=== PATIENT | male | born 1940 | race Caucasian/White ===

== ENCOUNTER → 2016-12-25 | Day surgery (SDC) | payer OTHER ==
[~2016-12-25] MED LIST: ACETAMINOPHEN 1000 MG/100 ML 100 ML IV ONE; ALLO300; ALPR0.5T99 PO; ASPI81TA82 PO; BALANCED SALT SOLN OPHT IRRIG 15 ML BTL ONE; BUPIVACAINE/EPINEPHRINE 0.25% 50 ML VIAL ONE; DIOV320T PO; GLUCTAB; LACTATED RINGER'S 1000 ML INJ 1,000 ML IV ONE; LACTATED RINGER'S 1000 ML INJ 1,000 ML ONE; LIDOCAINE 0.5%/EPINEPHrine 1:200,000 SOLN 50 ML VIAL ONE; METO50TA; MIDAZOLAM HCL 2 MG/2 ML VIAL ONE; NAPR-576 PO; NEOMYCIN/POLYMYXIN/BACITRACIN OINT 15 GM TUBE ONE; ONDANSETRON HCL 4 MG/2 ML VIAL IV PUSH ONE; PROPOFOL 200 MG/20 ML AMP IV ONE; SIMV40 PO; SYNT137T PO; TRAM50TA PO; ceFAZolin INJ 1,000 MG VIAL ONE
--- NOTE | 2016-12-25 11:42 | TN ---
cc: CODY JORDAN M.D. 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 PROCEDURE Wide local excision resultant primary defect of the lateral forehead of 2 x 2. This required tissue rearrangement reconstruction for a second defect of 5 x 3 cm. The right helical rim on the top of the ear, the defect was 1.2 x 1 cm. The secondary defect was 4.5 x 2. This required tissue rearrangement reconstruction (Antia-Bajwa). SURGEON Cody Jordan MD ANESTHESIA LMA. Utilized total of 10 ccs of 1% lidocaine with epinephrine. ESTIMATED BLOOD LOSS Minimal. COMPLICATIONS None. PROCEDURE He was properly consented, marked, anesthetized. The skin was sterilized with Microcyn and sterile draping applied. Local anesthetic was infiltrated. Excision was carried out of the forehead lesion resulting defect of 2 x 2 cm defect. A V-Y tissue rearrangement reconstruction was advanced lateral to medial and anchored inset utilizing 4-0 Monocryl suture of 5-0 fast-absorbing gut. Secondary defect was 5 x 3 for a total of 19 sq cm. The lesion on the helical rim was excised and sent to pathology for frozen section due to the complexity and the location. Frozen section was negative. Primary defect is 1 x 1.2 cm margins. An Antia-Bajwa type of flap was elevated and rotated into the defect for a second defect of 4.5 x 2 cm.The reconstruction totaled 10.20 sq cm. Good viability of tissue was noted at the end of the case. It was anchored with the same suture material as previously mentioned. Overall, the patient tolerated the procedure well. He was awakened, extubated in the operating room and transferred back to postanesthesia care unit in stable condition. No complications were appreciated. The patient tolerated the procedure fairly well. MD SUMAN Orlando/FACUNDO /11:02 AM /11:23 AM DAMION
== END | disposition home or self-care (01) ==
LOC: ESDC 08:11
PROVIDERS: ATTEND Plastic Surgery
DX: C44.329 Squamous cell carcinoma of skin of other parts of face (principal); C44.222 Squamous cell carcinoma of skin of right ear and external auricular canal
CPT/HCPCS: 00300; 14041; 14061; 88305; 88331; J0131; J0690; J2250; J2405; J3010; J7120